=== PATIENT | male | born 1990 | race African-American/Black ===

== ENCOUNTER 2020-10-14 07:11 | Emergency (ER) | payer OTHER ==
[~2020-10-14] VITALS: Ht 167.6 cm; Wt 56.0 kg
[2020-10-14 07:25] VITALS: BP 145/95
== END 2020-10-14 11:46 | disposition home or self-care (01) ==
LOC: ER 07:38
DX: R05 Cough (principal); R06.02 Shortness of breath; Z88.0 Allergy status to penicillin; Z88.2 Allergy status to sulfonamides
CPT/HCPCS: 71045; 87426; 99284